=== PATIENT | female | born 1980 | race Caucasian/White ===

== ENCOUNTER 2018-02-07 20:14 | Inpatient (IN) | payer BC ==
[~2018-02-07] VITALS: Ht 170.2 cm; Wt 52.2 kg
[2018-02-07 21:26] LABS: BASOPHILS # (AUTO) 0.1 K/uL (0.0-8.0); BASOPHILS % (AUTO) 0.7 % (0.0-2.0); EOSINOPHILS # (AUTO) 0.2 K/uL (0.0-0.7); EOSINOPHILS % (AUTO) 1.1 % (0.0-7.0); HEMATOCRIT 40.5 % (31.2-41.9); HEMOGLOBIN 13.8 g/dL (10.9-14.3); LYMPHOCYTES # (AUTO) 3.1 K/uL (20.0-40.0); LYMPHOCYTES % (AUTO) 15.5 % (20.5-51.5); MEAN CORPUSCULAR HEMOGLOBIN 31.5 uug (24.7-32.8); MEAN CORPUSCULAR HGB CONC 34 g/dL (32.3-35.6); MEAN CORPUSCULAR VOLUME 92.7 fL (75.5-95.3); MONOCYTES # (AUTO) 1.4 K/uL (2.0-10.0); MONOCYTES % (AUTO) 6.9 % (0.0-11.0); NEUTROPHILS # (AUTO) 15.4 K/uL (1.8-8.9); NEUTROPHILS % (AUTO) 75.8 % (38.5-71.5); PLATELET COUNT (AUTO) 402 K/uL (179-408); RED BLOOD CELL COUNT(AUTO) 4.37 MIL/uL (3.63-4.92); WHITE BLOOD COUNT (AUTO) 20.3 K/uL (3.8-11.8)
[2018-02-07 21:33] LABS: CREATININE 0.8 mg/dL (0.6-1.3); POTASSIUM 3.9 mmol/L (3.5-5.1)
[2018-02-07] MEDS ORDERED: LORAZEPAM 2 MG/1 ML VIAL IV ONE (21:45)
[2018-02-07 21:50] LABS: BILIRUBIN,DIRECT 0.1 mg/dL (0.0-0.2); BILIRUBIN,TOTAL 0.2 mg/dL (0.2-1.0); TOTAL PROTEIN, SERUM 7.1 g/dL (6.4-8.2)
[2018-02-07] MEDS ORDERED: IV NORMAL SALINE 1000 ML BAG IV ONE (22:00)
[2018-02-07] MEDS ORDERED: VANCOMYCIN IV 1,000 MG in IV DEXTROSE 5% 250 ML IV ONE (22:00)
[2018-02-07] MEDS ORDERED: GENTAMICIN SULFATE INJ 80 MG in IV DEXTROSE 5% 100 ML IV ONE (22:00)
[2018-02-07] MEDS ORDERED: LORAZEPAM 2 MG/1 ML VIAL ONE (22:24)
[2018-02-07] MEDS ORDERED: BUPR1FIL3 SL (22:29)
[2018-02-07] MEDS ORDERED: DIAZ10TA PO (22:29)
[2018-02-07] MEDS ORDERED: ONDA4TAB5 PO (22:29)
[2018-02-07] MEDS ORDERED: GENTAMICIN SULFATE 80 MG/2 ML VIAL ONE (22:29)
[2018-02-07] MEDS ORDERED: MIRT15TA3 PO (22:29)
[2018-02-07] MEDS ORDERED: GABA-534 PO (22:29)
--- NOTE | 2018-02-07 23:27 | NUR ---
[facility] WAITING FOR DR VILLA TO CALL
[2018-02-07] MEDS ORDERED: VANCOMYCIN IV 200 ML ONE (23:46)
--- NOTE | 2018-02-07 23:50 | NUR ---
REPORT GIVEN TO [facility] NURSESANDI RN
--- NOTE | 2018-02-08 00:05 | NUR ---
[facility] WAITING FOR DR SAAB TO CALL BACK
--- NOTE | 2018-02-08 00:08 | NUR ---
DR BROWN SPEAKING WITH DR SAAB
[2018-02-08] MEDS ORDERED: ONDANSETRON HCL 4 MG TABLET PO PRN (00:15)
[2018-02-08] MEDS ORDERED: IV NS 1000 ML 1,000 ML IV PRN (00:16)
[2018-02-08] MEDS ORDERED: ONDANSETRON 4 MG/2 ML VIAL IV PRN (00:30)
[2018-02-08] MEDS ORDERED: Z GUARD REMEDY PASTE 57 GM TUBE TOP PRN (00:30)
[2018-02-08] MEDS ORDERED: ACETAMINOPHEN 325 MG TABLET PO PRN (00:30)
[2018-02-08] MEDS ORDERED: MAGNESIUM HYDROXIDE 30 ML LIQUID UDC PO PRN (00:30)
--- NOTE | 2018-02-08 00:55 | NUR ---
Pt. admitted to [facility], under care of Dr. SAAB [place] List completed
[2018-02-08 00:58] VITALS: BP 104/71
--- NOTE | 2018-02-08 01:30 | NUR ---
RECEIVED PT FROM ER VIA GURNEY AT 0050h. PT IS AWAKE, ALERT AND ORIENTED. PT ADMITTED TO [facility]. DX: INFECTION. BELONGING LIST DONE. ADMISSION PROCESS AND CARE PLAN INITIATED. USP ASSESSMENT DONE. PT REFUSED TO CHANGE INTO GOWN. PT REFUSED ALSO TO TAKE HER PHOTO FOR HER SKIN. CALL LIGHT WITHIN REACH. BED ALARM, SIDE [id number], AND BE DIN LOW POSITION. SAFETY AND COMFORT PROVIDED. WILL CONTINUE TO MONITOR.
[2018-02-08] MEDS ORDERED: MIRTAZAPINE 15 MG TAB.RAPDIS PO SCH ×2 (02:15→21:00)
[2018-02-08 04:45] VITALS: BP 90/48
[2018-02-08] MEDS: HYDROCODONE/APAP 5-325MG TABLET PO PRN ×2 (04:45→08:05)
[2018-02-08] MEDS: DIAZEPAM 10 MG TABLET PO SCH ×5 (05:32→20:02)
--- NOTE | 2018-02-08 06:19 | NUR ---
PT SLEPT INTERMITTENTLY. PT ASKING FOR HER SUBOXONE. DR SAAB AWARE. PT WANTS STRONGER PAIN MEDICATION. IV INTACT AND PATENT.PRESCRIBED MEDICATION GIVEN. PT TOLERATED IT WELL. SAFETY AND COMFORT PROVIDED.ALL NEEDS ARE MET. WILL ENDORSE TO DAYSHIFT NURSE.
[2018-02-08] MEDS: GABAPENTIN 300 MG CAPSULE PO SCH ×3 (08:01→17:20)
[2018-02-08] MEDS: VANCOMYCIN IV 750 MG in IV DEXTROSE 5% 250 ML IV SCH ×2 (08:37→20:23)
[2018-02-08] MEDS ORDERED: NICOTINE 21 MG/24HR PATCH TD SCH (09:00)
[2018-02-08] MEDS ORDERED: HYDROCODONE/APAP 10-325 MG TABLET PO PRN (11:30)
[2018-02-08 11:45] VITALS: BP 103/58
[2018-02-08] MEDS: PIPERACILLIN/TAZOBACTAM/D5W 50 ML IV SCH ×2 (13:58→18:04)
[2018-02-08] MEDS ORDERED: HYDROMORPHONE 1 MG/1 ML DISP.SYRIN IV PRN (14:00)
--- NOTE | 2018-02-08 14:11 | NUR ---
Clinical Pharmacy Note: Vancomycin Pharmacy to Dose Subjective: To start vancomycin in this 37 y/o female for indication of "suspected infection" (increased wbc) Objective: weight 52 kg height 170cm BUN 14 Scr 0.8 wbc 20.3 temp 98.3 1gm given in ER 02/07 @ 5721 Assessment/Plan Based on renal function, will start regimen of 750mg q12hr for estimated trough of 17.13, first dose today at 0900. Will order trough before 4th scheduled dose (not ordered yet). Will dose per level if renal function were to change. Will follow
[2018-02-08] MEDS ORDERED: HYDROMORPHONE 2 MG/1 ML DISP.SYRIN IV PRN ×2 (14:15→16:30)
[2018-02-08 16:05] VITALS: BP 102/59
[2018-02-08 17:43] LABS: *BILIRUBIN,URIN NEGATIVE (NEGATIVE); *BLOOD, URINE NEGATIVE (NEGATIVE); *CLARITY,URINE CLEAR (CLEAR); *COLOR,URINE YELLOW (YELLOW); *KETONES,URINE NEGATIVE (NEGATIVE); *PROTEIN,URINE NEGATIVE (NEGATIVE); *UROBILINOGEN,URINE 0.2 E.U./dl (NORMAL); LEUKOCYTE ESTERASE ,URINE NEGATIVE (NEGATIVE); NITRITE, URINE NEGATIVE (NEGATIVE); PH,URINE 8.5 (5.0-8.0); UGLUCOSE NEGATIVE (NEGATIVE)
--- NOTE | 2018-02-08 18:13 | NUR ---
PT OBSERVED IN ROOM RESTLESS, LAYING IN BED, AOX3, RECEIVING HER SECOND DOSE OF ZOSYN IV. PT SHOWS NO SIGNS OF RESPIRATORY DISTRESS AT THIS TIME. CONTINUE TO MONITOR PT.
[2018-02-08 18:15] LABS: SQUAMOUS EPITHELIAL CELL,UR FEW /HPF (NONE SEEN); WBC,URINE NONE SEEN /HPF (0-3)
[2018-02-08 20:00] VITALS: BP 96/57
--- NOTE | 2018-02-08 20:00 | NUR ---
nsg: Received patient sitting in bed. a/o x4 ambulatory. iv running fine.no c/o pain or discomfort at this time.
[2018-02-08] MEDS ORDERED: LACTOBACILLUS RHAMNOSUS GG 1 EACH CAPSULE PO SCH (21:00)
--- NOTE | 2018-02-08 21:00 | NUR ---
nsg: patient stated i want go home AMA due to i have bed in rehab.charge nurse made aware. Dr. Parra made aware.
--- NOTE | 2018-02-08 21:35 | NUR ---
nsg: patient left AMA @ this time. iv line d/c'd. all belonging given. no c/o pain or discomfort at this time. charge nurse aware.
== END 2018-02-08 21:45 | disposition left against medical advice (07) | DRG 372 ==
LOC: ER 20:19 → MED 02-08 00:04
PROVIDERS: ADMIT Internal Medicine; ATTEND Internal Medicine
DX: A04.9 Bacterial intestinal infection, unspecified (principal); F11.20 Opioid dependence, uncomplicated; F15.10 Other stimulant abuse, uncomplicated; Z88.0 Allergy status to penicillin; Z98.1 Arthrodesis status; Z90.81 Acquired absence of spleen; G89.4 Chronic pain syndrome; T14.8XXS Other injury of unspecified body region, sequela; V89.2XXS Person injured in unspecified motor-vehicle accident, traffic, sequela; F17.210 Nicotine dependence, cigarettes, uncomplicated; Z90.710 Acquired absence of both cervix and uterus
CPT/HCPCS: 36415; 70030-TC; 71045; 83605; 83690; 84703; 85025; 85730; 87040; 87086; 93005; 93307; A4663; J1170; J1580; J2060; J2543; J3370; J7030; J7060